=== PATIENT | female | born 1970 | race African-American/Black ===

== ENCOUNTER 2017-02-17 01:57 | Emergency (ER) | payer BC ==
[2017-02-17] MEDS ORDERED: Morphine 10 MG/ML VIAL ONE ×3 (02:48→05:25)
[2017-02-17 03:08] LABS: #Eosinphils 0.3 thou/uL (0.0-0.7); #Lymphocytes 2.2 thou/uL (1.20-3.40); #Monocytes 0.7 thou/uL (0.11-0.59); #Neutrophils 5.7 thou/uL (1.40-6.50); %Basophils 0.1 % (0.0-1.0); %Eosinophils 3.6 % (0.0-10.0); %Lymphocytes 24.3 % (21.0-51.0); %Monocytes 7.7 % (0.0-10.0); ALT (SGPT) 24 U/L (8-55); AST (SGOT) 18 U/L (5-34); Alkaline Phosphatase 78 U/L (40-150); Anion Gap 15 mmol/L (10-20); BUN (Urea Nitrogen) 11 mg/dL (7.0-18.7); Bilirubin, Total 0.3 mg/dL (0.2-1.2); Calc. Creatinine Clearance 0 mL/min (70-130); Calcium 9.6 mg/dL (7.8-10.44); Carbon Dioxide 20 mmol/L (22-29); Chloride 105 mmol/L (98-107); Estimated GFR-MDRD Greater than 90; Globulin 3.4 g/dL (2.4-3.5); Protein, Total 7.2 g/dL (6.0-8.3); Red Blood Cell (RBC) Count 4.86 mill/uL (4.20-5.40); White Blood Cell (WBC) Count 8.9 thou/uL (4.8-10.8)
[2017-02-17 05:37] LABS: Bilirubin Negative (Negative); Blood, Urine Negative (Negative); Glucose, Urine (Dipstick) Negative (Negative); Ketone, Urine Negative (Negative); Nitrite Negative (Negative); Protein, Urine (Dipstick) Negative (Neg-Trace)
--- NOTE | 2017-02-17 14:04 | CT ---
PRELIMINARY REPORT/[facility]/EMERGENCY AFTER HOURS PROCEDURE: EXAM: CT Chest With Intravenous Contrast CLINICAL HISTORY: 46 years old, female; Pain; Chest pain; Type not specified; Abdominal pain; Generalized; Patient HX: R/O dissection TECHNIQUE: Axial computed tomography images of the chest with intravenous contrast. CONTRAST: 100 mL of ISOVUE administered intravenously. COMPARISON: No relevant prior studies available. FINDINGS: Lungs: There is subpleural atelectasis of the dependent portions of the lungs, record of the LEFT. Pleural space: Normal. No pneumothorax. No significant effusion. Heart: Normal. No cardiomegaly. No significant pericardial effusion. Bones/joints: The thoracic spine demonstrates moderate degenerative changes at multiple levels. The sternum, ribs, and pectoral girdles are normal. No acute fracture. No dislocation. Soft tissues: See above. Vasculature: There is no evidence of aortic dissection, leak, rupture, or other complications. The a reinier is normal. There is no evidence of peripheral filling defects within the pulmonary arterial cir culation to suggest pulmonary embolism. Lymph nodes: Normal. No enlarged lymph nodes. IMPRESSION: 1. There is no evidence of aortic dissection, leak, rupture, or other complications. 2. There is no CT evidence of acute pulmonary embolism. EXAM: CT Abdomen With Intravenous Contrast EXAM DATE/TIME: Exam ordered 02/17/2017 4:28 AM CLINICAL HISTORY: 46 years old, female; Pain; Chest pain; Type not specified; Abdominal pain; Generalized; Patient HX: R/O dissection TECHNIQUE: Axial computed tomography images of the abdomen with intravenous contrast. CONTRAST: 100 mL of ISOVUE administered intravenously. COMPARISON: No relevant prior studies available. FINDINGS: Lower thorax: No acute findings. Liver: There are no focal liver lesions present. Gallbladder and bile ducts: Normal. No calcified stones. No ductal dilation. Pancreas: The pancreas is normal. No ductal dilation. Spleen: The spleen is normal. Adrenals: The adrenal glands are normal. Kidneys and ureters: The bilateral single renal arteries are patent without evidence of stenosis. Th e kidneys are normal. No hydronephrosis. Stomach and bowel: The duodenum is unremarkable. No obstruction. No mucosal thickening. Appendix: No findings to suggest acute appendicitis. Intraperitoneal space: Normal. No free air. No significant fluid collection. Bones/joints: The lumbar spine is normal. No acute fracture. No dislocation. Soft tissues: Normal. Vasculature: The aorta is normal. There is no evidence of aortic dissection, leak, rupture, or other complications. The vasculature is normal. The celiac artery and SMA are patent without evidence of stenosis. The YESENIA is patent without evidence of stenosis. Lymph nodes: Normal. No enlarged lymph nodes. IMPRESSION: There is no evidence of aortic dissection, leak, rupture, or other complications. Thank you for allowing us to participate in the care of your patient. Dictated and Authenticated by: Carlos Mckeon MD 02/17/2017 5:01 AM Central Time ([place] \T\ [place]) FINAL REPORT CT ANGIOGRAM OF THE CHEST WITH 3D RENDERING CT ANGIOGRAM OF THE ABDOMEN WITH 3D RENDERING: EMERGENT AFTER HOURS EXAM TIME: 4:33 a.m. DATE: 02/17/17. No evidence of aortic aneurysm or dissection. No Ct evidence for acute pulmonary embolism. Minimal pleural fluid or pleural thickening in the right posterior chest with some pleural-based parenchyma l changes, possibly atelectasis. No evidence for other significant process. POS: [facility]
[2017-02-17] MEDS ORDERED: ISOVUE-370 76%-LOCM 1 ML ONE (16:01)
== END 2017-02-17 06:57 | disposition home or self-care (01) ==
LOC: ERS 01:57
DX: S29.012A Strain of muscle and tendon of back wall of thorax, initial encounter (principal); F32.9 Major depressive disorder, single episode, unspecified; E66.9 Obesity, unspecified; Z79.899 Other long term (current) drug therapy; X58.XXXA Exposure to other specified factors, initial encounter
CPT/HCPCS: 71275; 80053; 81003; 85025; 96374; 96376; J2270

== ENCOUNTER 2021-08-31 12:42 | Emergency (ER) | payer BC, SELFPAY | END 2021-08-31 13:30 | disposition home or self-care (01) | LOC: ERS 12:42 | DX: M25.512 Pain in left shoulder (principal); M79.632 Pain in left forearm; M25.532 Pain in left wrist; M79.642 Pain in left hand; I10 Essential (primary) hypertension | CPT/HCPCS: 99283 ==